=== PATIENT | female | born 1985 ===

== ENCOUNTER 2019-02-14 02:22 | Inpatient (IN) | payer MEDICAID ==
[2019-02-14] MEDS ORDERED: Terbutaline 1 MG/ML SDV SUBCUT ONE (03:06)
[2019-02-14] MEDS ORDERED: Sodium Chloride 0.9% 10 ML Syringe FLUSH PRN (03:07)
[2019-02-14] MEDS ORDERED: Sodium Chloride 0.9% 2.5 ML Syringe FLUSH PRN (03:07)
[2019-02-14] MEDS ORDERED: Sodium Chloride 0.9% 10 ML SDV IV PRN (03:07)
[2019-02-14] MEDS ORDERED: ceFAZolin 2 GM in Premix Bag 1 BAG IV ONE (03:07)
[2019-02-14] MEDS ORDERED: Citric Acid/Sodium Citrate Solution 30 ML Cup PO ONE (03:07)
[2019-02-14] MEDS ORDERED: Terbutaline 1 MG/ML SDV ONE (03:13)
[2019-02-14] MEDS ORDERED: Oxytocin/0.9 % Sodium Chloride 30 UNIT/500 ML BAG IV SCH (03:15)
[2019-02-14] MEDS: Lactated Ringers 1,000 ML IV SCH ×4 (03:21→13:45)
[2019-02-14] MEDS ORDERED: Morphine PF 10 MG/10 ML SDV ONE (03:32)
[2019-02-14] MEDS ORDERED: Oxytocin 10 Units/1 ML SDV ONE (03:36)
[2019-02-14] MEDS ORDERED: Ondansetron 4 MG/2 ML SDV ONE (03:37)
[2019-02-14] MEDS ORDERED: Phenylephrine/Normal Saline 100 MCG/ML 10 ML Syringe ONE (03:37)
[2019-02-14] MEDS ORDERED: Ketorolac 30 MG/ML SDV ONE (03:37)
--- NOTE | 2019-02-14 03:47 | PCM.PREANE ---
Preanesthetic Assessment - Anesthesia/Transfusion/Family Hx Anesthesia History: Prior Anesthesia Without Reaction Family History of Anesthesia Reaction: No - Physical Assessment NPO Status Date: 02/13/19 NPO Status Time: 11:00 Height: 1.73 m Weight: 100.244 kg ASA Class: 2E Mental Status: Alert & Oriented x3 Dentition: Reports: Normal Dentition ROM/Head Extension: Full - Lab Values: Laboratory Last Values WBC 14.14 K/uL (4.0-11.0) H 02/14/19 03:25 RBC 4.20 M/uL (4.30-5.90) L 02/14/19 03:25 Hgb 13.0 g/dL (12.0-16.0) 02/14/19 03:25 Hct 38.1 % (36.0-46.0) 02/14/19 03:25 MCV 90.7 fL (80.0-98.0) 02/14/19 03:25 MCH 31.0 pg (27.0-32.0) 02/14/19 03:25 MCHC 34.1 g/dL (31.0-37.0) 02/14/19 03:25 RDW Std Deviation 43.5 fl (28.0-62.0) 02/14/19 03:25 RDW Coeff of Elmer 13 % (11.0-15.0) 02/14/19 03:25 Plt Count 211 K/uL (150-400) 02/14/19 03:25 MPV 10.80 fL (7.40-12.00) 02/14/19 03:25 Nucleated RBC % 0.0 /100WBC 02/14/19 03:25 Nucleated RBCs # 0 K/uL 02/14/19 03:25 - Allergies Allergies/Adverse Reactions: Allergies Allergy/AdvReac Type Severity Reaction Status Date / Time acetaminophen Allergy lips swell Verified 02/09/19 12:50 [From Theraflu Sinus and Cold] diphenhydramine Allergy lips & Verified 02/09/19 12:50 [From Benadryl] throat swell pheniramine Allergy lips swell Verified 02/09/19 12:50 [From Theraflu Sinus and Cold] phenylephrine Allergy lips swell Verified 02/09/19 12:50 [From Theraflu Sinus and Cold] - Acknowledgements Anesthesia Type Planned: Spinal Pt an Appropriate Candidate for the Planned Anesthesia: Yes Alternatives and Risks of Anesthesia Discussed w Pt/Guardian: Yes Pt/Guardian Understands and Agrees with Anesthesia Plan: Yes PreAnesthesia Questionnaire - HOME MEDS Home Medications: Home Meds Iron 22 mg PO DAILY 02/09/19 [History] Lactobacillus Combination No.4 [Probiotic] 1 tab PO DAILY 02/09/19 [History] Pnv No.95/Ferrous Fum/Folic AC [ Vitamin Tablet] 1 tab PO DAILY [History] - CURRENT (IN HOUSE) MEDS Current Meds: Current Medications Oxytocin/Sodium Chloride (Oxytocin 30 Unit/500 Ml-Ns) 30 unit in 500 mls @ 250 mls/hr IV TITRATE DEREK Lactated Ringer's (Ringers, Lactated) 1,000 mls @ 500 mls/hr IV BOLUS DEREK Last Admin: 02/14/19 03:21 Dose: 999 mls/hr Sodium Chloride (Saline Flush) 10 ml FLUSH ASDIRECTED PRN PRN Reason: Keep Vein Open Sodium Chloride (Saline Flush) 2.5 ml FLUSH ASDIRECTED PRN PRN Reason: Keep Vein Open Sodium Chloride (Normal Saline) 10 ml IV ASDIRECTED PRN PRN Reason: IV Use Discontinued Medications Citric Acid/Sodium Citrate (Bicitra Solution) 30 ml PO ONETIME ONE Stop: 02/14/19 03:08 Cefazolin Sodium/Dextrose 2 gm (/ Premix) 50 mls @ 100 mls/hr IV ONETIME ONE Stop: 02/14/19 03:36 Ketorolac Tromethamine (Toradol) Confirm Administered Dose 30 mg .ROUTE .STK- MED ONE Stop: 02/14/19 03:38 Morphine Sulfate (Duramorph Pf) Confirm Administered Dose 10 mg .ROUTE .STK-MED ONE Stop: 02/14/19 03:33 Ondansetron HCl (Zofran) Confirm Administered Dose 4 mg .ROUTE .STK-MED ONE Stop: 02/14/19 03:38 Oxytocin (Pitocin) Confirm Administered Dose 10 unit .ROUTE .STK-MED ONE Stop: 02/14/19 03:37 Phenylephrine HCl (Phenylephrine In Ns 100 Mcg/Ml) Confirm Administered Dose 1 mg .ROUTE .STK-MED ONE Stop: 02/14/19 03:38 Terbutaline Sulfate (Brethine) 0.25 mg SUBCUT ONETIME ONE Stop: 02/14/19 03:07 Last Admin: 02/14/19 03:18 Dose: 0.25 mg Terbutaline Sulfate (Brethine) Confirm Administered Dose 1 mg .ROUTE .STK-MED ONE Stop: 02/14/19 03:14
[2019-02-14] MEDS ORDERED: ceFAZolin 1 GM Vial ONE (03:56)
[2019-02-14] MEDS ORDERED: Sodium Chloride 0.9% 20 ML ONE (03:56)
[2019-02-14] MEDS ORDERED: Ondansetron 4 MG/2 ML SDV IVPUSH PRN ×2 (05:25→06:47)
[2019-02-14] MEDS ORDERED: fentaNYL 100 MCG/2 ML SDV IVPUSH PRN (05:25)
[2019-02-14] MEDS ORDERED: Nalbuphine 10 MG/1 ML Vial IVPUSH PRN (05:25)
[2019-02-14] MEDS ORDERED: Acetaminophen/oxyCODONE 325-5 MG Tab PO PRN ×2 (05:25→06:47)
[2019-02-14] MEDS ORDERED: Naloxone 0.4 MG/ML Syringe IVPUSH PRN (05:25)
[2019-02-14] MEDS ORDERED: Bisacodyl 10 MG Supp RECTAL PRN (06:47)
[2019-02-14] MEDS ORDERED: Tranexamic Acid 1,000 MG in Sodium Chloride 0.9% 100 ML IV PRN (06:47)
[2019-02-14] MEDS ORDERED: Oxytocin 10 Units/1 ML SDV IM PRN (06:47)
[2019-02-14] MEDS ORDERED: Methylergonovine 0.2 MG/1 ML Amp IM PRN (06:47)
[2019-02-14] MEDS ORDERED: Misoprostol 200 MCG Tab RECTAL PRN (06:47)
[2019-02-14] MEDS ORDERED: Lanolin 100% Cream 7 GM Tube TOP PRN (06:47)
--- NOTE | 2019-02-14 06:52 | PCM.POSTAN ---
POST ANESTHESIA ASSESSMENT - MENTAL STATUS Mental Status: Alert - VITAL SIGNS Vital Signs: Last Vital Signs Temp 37.2 C 02/14/19 06:16 Pulse 95 02/14/19 06:47 Resp 18 02/14/19 06:47 BP 115/63 02/14/19 06:47 Pulse Ox 98 02/14/19 06:47 - RESPIRATORY Respiratory Status: Respiratory Rate WNL - CARDIOVASCULAR CV Status: Pulse Rate WNL - GASTROINTESTINAL GI Status: No Symptoms - POST OP HYDRATION Hydration Status: Adequate & Stable
--- NOTE | 2019-02-14 06:57 | PCM.OPNOTE ---
- General Post-Op/Procedure Note Date of Surgery/Procedure: 02/14/19 Operative Procedure(s): Tertiary Lower transverse Findings: Live female delivered at 515am , 8/9 weight 3890g Pre Op Diagnosis: 33yo @ 39w3d in early labor Post-Op Diagnosis: same Anesthesia Technique: Spinal Primary Surgeon: Mireya Humphrey Anesthesia Provider: Manpreet Read Pathology: Placenta Fluid Replacement, Intraop: 1,800 Output, Urine Amount: 75 EBL in mLs: 600 Complications: None Condition: Good Free Text/Narrative:: Intake & Output 02/13/19 02/13/19 02/14/19 14:59 22:59 06:59 Intake Total 2100 Output Total 75 Balance 2024
[2019-02-14] MEDS ORDERED: Oxytocin/Lactated Ringers 30 UNIT/500 ML BAG IV SCH (07:00)
[2019-02-14] MEDS: Ketorolac 30 MG/ML SDV IVPUSH SCH ×3 (08:04→18:26)
[2019-02-14] MEDS: Docusate Sodium 100 MG Cap PO SCH ×2 (10:25→21:02)
[2019-02-15] MEDS: Ketorolac 30 MG/ML SDV IVPUSH SCH ×2 (00:10→06:34)
--- NOTE | 2019-02-15 01:50 | OR ---
SURGEON: ALEX JOHNSON DATE OF PROCEDURE:02/14/2019 PREOPERATIVE DIAGNOSIS: A 33-year-old G3, P2-0-0-2, at 39 weeks 3 days, previous section in early labor. POSTOPERATIVE DIAGNOSES: A 33-year-old G3, P2-0-0-2, at 39 weeks 3 days, previous section in early labor. PROCEDURE: Tertiary lower transverse segment section. ESTIMATED BLOOD LOSS: 750. IV FLUIDS: 1800. URINE OUTPUT: 75. COMPLICATIONS: None NOTES AND FINDINGS: A live female delivered at 5:15 a.m. scores are 8 and 9. Weight is 3890 g. BRIEF HISTORY ABOUT THE PATIENT: A 33-year-old G3, P2-0-0-2, at 39 weeks 3 days, who came in complaining of contractions. She had previous history of and she declined TOLAC. She was explained the risks, benefits, alternatives of delivery, which she accepted. All questions were answered. DESCRIPTION OF PROCEDURE: The patient was taken to the operating room, where she was placed in the dorsal supine position with a leftward tilt. A Pfannenstiel skin incision was made on the scar of the previous incision and carried down to the fascia with the Bovie. The fascia was incised and extended upwards and laterally. The fascia was from the rectus muscles superiorly and inferiorly. Rectus muscle was in the midline. The peritoneum was grasped with the hemostat and entered in. The incision was then extended manually. The lower uterine segment was noted. The Shashank retractor was placed in the abdomen to expose the lower uterine segment. The bladder flap was created. A lower uterine incision was made. Fetus was in cephalic position. She was brought to the level of the incision. With fundal pressure, the fetus was delivered without difficulty. The cord was clamped and cut. The infant was handed over to the awaiting director consumer. Placenta was delivered by manual massage of the uterine fundus. The uterus was cleaned with laparotomy sponges. The hysterotomy incision was closed in 2 layers. First layer was closed with 0 Vicryl interlocking. Second layer was closed with 0 Monocryl. The Shashank retractor was removed. The adnexa were inspected and noted to be normal. The gutters were cleaned with laparotomy sponges. The peritoneum was then approximated with 2.0 vicryl . The fascia was closed with 0 Vicryl. The subcutaneous fat was also closed with 2.0 vicryl and the skin was closed with 3-0 Monocryl on a Jona needle. All instrument and pad counts were correct x2. The patient tolerated the procedure well and was taken to the recovery room. CHRISTI SEGAL /[id number] ANANDA
--- NOTE | 2019-02-15 07:15 | PCM48HPAN ---
Post Anesthesia Note - EVALUATION WITHIN 48HRS OF ANESTHETIC Vital Signs in Normal Range: Yes Patient Participated in Evaluation: Yes Respiratory Function Stable: Yes Airway Patent: Yes Cardiovascular Function Stable: Yes Hydration Status Stable: Yes Pain Control Satisfactory: Yes Nausea and Vomiting Control Satisfactory: Yes Mental Status Recovered: Yes Vital Signs: Last Vital Signs Temp 37.0 C 02/15/19 04:20 Pulse 98 02/15/19 05:00 Resp 17 02/15/19 05:00 BP 104/56 L 02/15/19 04:20 Pulse Ox 97 02/15/19 05:00
[2019-02-15] MEDS: Docusate Sodium 100 MG Cap PO SCH ×2 (08:21→20:17)
--- NOTE | 2019-02-15 08:55 | PCM.PNPP ---
- General Info Date of Service: 02/15/19 Functional Status: Reports: Pain Controlled, Tolerating Diet, Ambulating, Urinating - Review of Systems General: Reports: No Symptoms HEENT: Reports: No Symptoms Pulmonary: Reports: No Symptoms Cardiovascular: Reports: No Symptoms Gastrointestinal: Reports: No Symptoms Genitourinary: Reports: No Symptoms Musculoskeletal: Reports: No Symptoms Skin: Reports: No Symptoms Neurological: Reports: No Symptoms Psychiatric: Reports: No Symptoms - General Info Date of Service: 02/15/19 - Patient Data Vital Signs - Most Recent: Last Vital Signs Temp 37.0 C 02/15/19 04:20 Pulse 98 02/15/19 05:00 Resp 17 02/15/19 05:00 BP 104/56 L 02/15/19 04:20 Pulse Ox 97 02/15/19 05:00 Weight - Most Recent: 100.244 kg I&O - Last 24 Hours: Intake & Output 02/14/19 02/15/19 02/15/19 22:59 06:59 14:59 Intake Total 1679 Output Total 700 1800 Balance 979 -1800 Lab Results - Last 24 Hours: Laboratory Results - last 24 hr 02/15/19 Range/Units 05:45 Hgb 11.3 L (12.0-16.0) g/dL Hct 33.5 L (36.0-46.0) % Med Orders - Current: Current Medications Bisacodyl (Dulcolax) 10 mg RECTAL ONETIME PRN PRN Reason: Constipation Docusate Sodium (Colace) 100 mg PO BID [facility] Last Admin: 02/15/19 08:21 Dose: 100 mg Emollient Ointment (Lansinoh Hpa) 0 gm TOP ASDIRECTED PRN PRN Reason: Sore Nipples Fentanyl (Sublimaze) 50 mcg IVPUSH Q1H PRN PRN Reason: Pain (severe 7-10) Oxytocin/Sodium Chloride (Oxytocin 30 Unit/500 Ml-Ns) 30 unit in 500 mls @ 250 mls/hr IV TITRATE DEREK Lactated Ringer's (Ringers, Lactated) 1,000 mls @ 500 mls/hr IV BOLUS [facility] Last Admin: 02/14/19 04:26 Dose: 999 mls/hr Lactated Ringer's (Ringers, Lactated) 1,000 mls @ 125 mls/hr IV ASDIRECTED [facility] Last Admin: 02/14/19 13:45 Dose: 125 mls/hr Oxytocin/Lactated Ringer's (Pitocin In Lr 30 Units/500 Ml) 30 unit in 500 mls @ 125 mls/hr IV TITRATE DEREK; Protocol Tranexamic Acid 1,000 mg/ (Sodium Chloride) 110 mls @ 660 mls/hr IV ONETIME PRN PRN Reason: Bleeding Ibuprofen (Motrin) 800 mg PO Q8H PRN PRN Reason: mild pain or fever Methylergonovine Maleate (Methergine) 0.2 mg IM ONETIME PRN PRN Reason: Excessive Vaginal Bleeding Misoprostol (Cytotec) 1,000 mcg RECTAL ONETIME PRN PRN Reason: excessive bleeding Nalbuphine HCl (Nubain) 5 mg IVPUSH ASDIRECTED PRN PRN Reason: Itching Ondansetron HCl (Zofran) 4 mg IVPUSH Q6H PRN PRN Reason: Nausea Ondansetron HCl (Zofran) 4 mg IVPUSH Q4H PRN PRN Reason: Nausea/Vomiting Oxycodone/Acetaminophen (Percocet 325-5 Mg) 2 tab PO Q6H PRN PRN Reason: Pain (moderate 4-6) Oxycodone/Acetaminophen (Percocet 325-5 Mg) 1 tab PO Q4H PRN PRN Reason: Pain (moderate 4-6) Oxycodone/Acetaminophen (Percocet 325-5 Mg) 2 tab PO Q4H PRN PRN Reason: Pain (moderate 4-6) Oxytocin (Pitocin) 10 unit IM ASDIRECTED PRN PRN Reason: Excessive Vaginal Bleeding Sodium Chloride (Saline Flush) 10 ml FLUSH ASDIRECTED PRN PRN Reason: Keep Vein Open Sodium Chloride (Saline Flush) 2.5 ml FLUSH ASDIRECTED PRN PRN Reason: Keep Vein Open Sodium Chloride (Normal Saline) 10 ml IV ASDIRECTED PRN PRN Reason: IV Use Discontinued Medications Cefazolin Sodium (Ancef) Confirm Administered Dose 2 gm .ROUTE .STK-MED ONE Stop: 02/14/19 03:57 Citric Acid/Sodium Citrate (Bicitra Solution) 30 ml PO ONETIME ONE Stop: 02/14/19 03:08 Last Admin: 02/14/19 04:25 Dose: 30 ml Cefazolin Sodium/Dextrose 2 gm (/ Premix) 50 mls @ 100 mls/hr IV ONETIME ONE Stop: 02/14/19 03:36 Last Admin: 02/14/19 20:23 Dose: Not Given Sodium Chloride (Normal Saline) Confirm Administered Dose 20 mls @ as directed .ROUTE .STK-MED ONE Stop: 02/14/19 03:57 Ketorolac Tromethamine (Toradol) Confirm Administered Dose 30 mg .ROUTE .STK- MED ONE Stop: 02/14/19 03:38 Ketorolac Tromethamine (Toradol) 30 mg IVPUSH Q6H DEREK Stop: 02/15/19 07:01 Last Admin: 02/15/19 06:34 Dose: Not Given Morphine Sulfate (Duramorph Pf) Confirm Administered Dose 10 mg .ROUTE .STK-MED ONE Stop: 02/14/19 03:33 Naloxone HCl (Narcan) 0.1 mg IVPUSH ONETIME PRN PRN Reason: Respiratory Depression Stop: 02/15/19 05:26 Ondansetron HCl (Zofran) Confirm Administered Dose 4 mg .ROUTE .STK-MED ONE Stop: 02/14/19 03:38 Oxytocin (Pitocin) Confirm Administered Dose 10 unit .ROUTE .STK-MED ONE Stop: 02/14/19 03:37 Phenylephrine HCl (Phenylephrine In Ns 100 Mcg/Ml) Confirm Administered Dose 1 mg .ROUTE .STK-MED ONE Stop: 02/14/19 03:38 Terbutaline Sulfate (Brethine) 0.25 mg SUBCUT ONETIME ONE Stop: 02/14/19 03:07 Last Admin: 02/14/19 03:18 Dose: 0.25 mg Terbutaline Sulfate (Brethine) Confirm Administered Dose 1 mg .ROUTE .STK-MED ONE Stop: 02/14/19 03:14 Last Admin: 02/14/19 03:18 Dose: Not Given - Interaction Support Person: Friend - Recovery Exam Fundal Tone: Firm Fundal Level: 1 Fingerbreadths Below Umbilicus Fundal Placement: Midline Lochia Amount: Scant Lochia Color: Rubra/Red Perineum Description: Intact, Minimal Bruising/Swelling Episiotomy/Laceration: None Bladder Status: Indwelling Catheter in Place Urinary Elimination: Indwelling Catheter - Exam General: Alert, Oriented HEENT: Pupils Equal Neck: Supple Lungs: Clear to Auscultation Cardiovascular: Regular Rate, Regular Rhythm GI/Abdominal Exam: Normal Bowel Sounds Extremities: Normal Inspection Wound/Incisions: Dressing Dry and Intact (PFannestiel skin incision c/d/i ) Neurological: No New Focal Deficit Psy/Mental Status: Alert - Problem List & Annotations (1) delivery delivered SNOMED Code(s): 077752704 Code(s): O82 - ENCOUNTER FOR DELIVERY WITHOUT INDICATION Status: Acute Current Visit: Yes - Problem List Review Problem List Initiated/Reviewed/Updated: Yes - My Orders Last 24 Hours: My Active Orders 02/14/19 09:00 Docusate Sodium [Colace] 100 mg PO BID 02/14/19 Lunch Regular Diet [DIET] 02/15/19 13:00 Ibuprofen [Motrin] 800 mg PO Q8H PRN - Assessment Assessment:: 33 yo P3 s/p Tertiary , POD 1 Ambulating , voiding and tolerating regular diet Normal lochia - Plan Plan:: Routine Incentive spirometry Pain control as needed Discharge home tomorrow
[2019-02-15] MEDS: Ibuprofen 800 MG Tab PO PRN ×2 (11:34→19:21)
[2019-02-16] MEDS: Acetaminophen/oxyCODONE 325-5 MG Tab PO PRN ×3 (01:14→12:00)
[2019-02-16] MEDS: Ibuprofen 800 MG Tab PO PRN (05:16)
[2019-02-16] MEDS: Docusate Sodium 100 MG Cap PO SCH (08:12)
--- NOTE | 2019-02-16 09:04 | PCM.PNPP ---
- General Info Date of Service: 02/16/19 Functional Status: Reports: Pain Controlled, Tolerating Diet, Ambulating, Urinating, Incentive Spirometry - Review of Systems General: Reports: No Symptoms HEENT: Reports: No Symptoms Pulmonary: Reports: No Symptoms Cardiovascular: Reports: No Symptoms Gastrointestinal: Reports: Other (Incisonal pain, cramping) Genitourinary: Reports: No Symptoms Musculoskeletal: Reports: No Symptoms Skin: Reports: No Symptoms Neurological: Reports: No Symptoms Psychiatric: Reports: No Symptoms - Patient Data Vital Signs - Most Recent: Last Vital Signs Temp 36.6 C 02/16/19 03:00 Pulse 75 02/16/19 03:00 Resp 17 02/16/19 03:00 BP 115/68 02/16/19 03:00 Pulse Ox 96 02/16/19 03:00 Weight - Most Recent: 221 lb Med Orders - Current: Current Medications Bisacodyl (Dulcolax) 10 mg RECTAL ONETIME PRN PRN Reason: Constipation Docusate Sodium (Colace) 100 mg PO BID [facility] Last Admin: 02/16/19 08:12 Dose: 100 mg Emollient Ointment (Lansinoh Hpa) 0 gm TOP ASDIRECTED PRN PRN Reason: Sore Nipples Fentanyl (Sublimaze) 50 mcg IVPUSH Q1H PRN PRN Reason: Pain (severe 7-10) Oxytocin/Sodium Chloride (Oxytocin 30 Unit/500 Ml-Ns) 30 unit in 500 mls @ 250 mls/hr IV TITRATE DEREK Lactated Ringer's (Ringers, Lactated) 1,000 mls @ 500 mls/hr IV BOLUS [facility] Last Admin: 02/14/19 04:26 Dose: 999 mls/hr Lactated Ringer's (Ringers, Lactated) 1,000 mls @ 125 mls/hr IV ASDIRECTED [facility] Last Admin: 02/14/19 13:45 Dose: 125 mls/hr Oxytocin/Lactated Ringer's (Pitocin In Lr 30 Units/500 Ml) 30 unit in 500 mls @ 125 mls/hr IV TITRATE [facility]; Protocol Tranexamic Acid 1,000 mg/ (Sodium Chloride) 110 mls @ 660 mls/hr IV ONETIME PRN PRN Reason: Bleeding Ibuprofen (Motrin) 800 mg PO Q8H PRN PRN Reason: mild pain or fever Last Admin: 02/16/19 05:16 Dose: 800 mg Methylergonovine Maleate (Methergine) 0.2 mg IM ONETIME PRN PRN Reason: Excessive Vaginal Bleeding Misoprostol (Cytotec) 1,000 mcg RECTAL ONETIME PRN PRN Reason: excessive bleeding Nalbuphine HCl (Nubain) 5 mg IVPUSH ASDIRECTED PRN PRN Reason: Itching Ondansetron HCl (Zofran) 4 mg IVPUSH Q6H PRN PRN Reason: Nausea Ondansetron HCl (Zofran) 4 mg IVPUSH Q4H PRN PRN Reason: Nausea/Vomiting Oxycodone/Acetaminophen (Percocet 325-5 Mg) 2 tab PO Q6H PRN PRN Reason: Pain (moderate 4-6) Oxycodone/Acetaminophen (Percocet 325-5 Mg) 1 tab PO Q4H PRN PRN Reason: Pain (moderate 4-6) Last Admin: 02/16/19 08:12 Dose: 1 tab Oxycodone/Acetaminophen (Percocet 325-5 Mg) 2 tab PO Q4H PRN PRN Reason: Pain (moderate 4-6) Oxytocin (Pitocin) 10 unit IM ASDIRECTED PRN PRN Reason: Excessive Vaginal Bleeding Sodium Chloride (Saline Flush) 10 ml FLUSH ASDIRECTED PRN PRN Reason: Keep Vein Open Sodium Chloride (Saline Flush) 2.5 ml FLUSH ASDIRECTED PRN PRN Reason: Keep Vein Open Sodium Chloride (Normal Saline) 10 ml IV ASDIRECTED PRN PRN Reason: IV Use Discontinued Medications Cefazolin Sodium (Ancef) Confirm Administered Dose 2 gm .ROUTE .STK-MED ONE Stop: 02/14/19 03:57 Citric Acid/Sodium Citrate (Bicitra Solution) 30 ml PO ONETIME ONE Stop: 02/14/19 03:08 Last Admin: 02/14/19 04:25 Dose: 30 ml Cefazolin Sodium/Dextrose 2 gm (/ Premix) 50 mls @ 100 mls/hr IV ONETIME ONE Stop: 02/14/19 03:36 Last Admin: 02/14/19 20:23 Dose: Not Given Sodium Chloride (Normal Saline) Confirm Administered Dose 20 mls @ as directed .ROUTE .STK-MED ONE Stop: 02/14/19 03:57 Ketorolac Tromethamine (Toradol) Confirm Administered Dose 30 mg .ROUTE .STK- MED ONE Stop: 02/14/19 03:38 Ketorolac Tromethamine (Toradol) 30 mg IVPUSH Q6H DEREK Stop: 02/15/19 07:01 Last Admin: 02/15/19 06:34 Dose: Not Given Morphine Sulfate (Duramorph Pf) Confirm Administered Dose 10 mg .ROUTE .STK-MED ONE Stop: 02/14/19 03:33 Naloxone HCl (Narcan) 0.1 mg IVPUSH ONETIME PRN PRN Reason: Respiratory Depression Stop: 02/15/19 05:26 Ondansetron HCl (Zofran) Confirm Administered Dose 4 mg .ROUTE .STK-MED ONE Stop: 02/14/19 03:38 Oxytocin (Pitocin) Confirm Administered Dose 10 unit .ROUTE .STK-MED ONE Stop: 02/14/19 03:37 Phenylephrine HCl (Phenylephrine In Ns 100 Mcg/Ml) Confirm Administered Dose 1 mg .ROUTE .STK-MED ONE Stop: 02/14/19 03:38 Terbutaline Sulfate (Brethine) 0.25 mg SUBCUT ONETIME ONE Stop: 02/14/19 03:07 Last Admin: 02/14/19 03:18 Dose: 0.25 mg Terbutaline Sulfate (Brethine) Confirm Administered Dose 1 mg .ROUTE .STK-MED ONE Stop: 02/14/19 03:14 Last Admin: 02/14/19 03:18 Dose: Not Given - Interaction Infant Disposition, : [place] at Bedside Interaction: Holding Feeding: Breastfed Infant; Nursed Well Support Person: Friend - Recovery Exam Fundal Tone: Firm Fundal Level: 1 Fingerbreadths Below Umbilicus Fundal Placement: Midline Lochia Amount: Scant Lochia Color: Rubra/Red Episiotomy/Laceration: None Bladder Status: Voiding Urinary Elimination: Indwelling Catheter - Exam General: Alert, Oriented, Cooperative, No Acute Distress HEENT: Pupils Equal, Pupils Reactive, EOMI Neck: Supple, Trachea Midline, No JVD Lungs: Normal Respiratory Effort GI/Abdominal Exam: Normal Bowel Sounds, Soft, Non-Tender, No Distention Extremities: Normal Inspection, Normal Range of Motion, Non-Tender, No Pedal Edema Skin: Warm, Dry, Intact Wound/Incisions: Healing Well, No Drainage Neurological: No New Focal Deficit Psy/Mental Status: Alert, Normal Affect, Normal Mood - Problem List Review Problem List Initiated/Reviewed/Updated: Yes - My Orders Last 24 Hours: My Active Orders 02/16/19 08:53 Ready for Discharge [RC] PER UNIT ROUTINE - Assessment Assessment:: 33 yo P3 s/p repeat , POD 2 - Plan Plan:: VSS Incision healing well, pain controlled Ambulating , voiding and tolerating regular diet hgb 11.3, no s/s of anemia + flatus Stable for discharge home today. Follow up in 2wks and 6wks
== END 2019-02-16 12:00 | disposition home or self-care (01) | DRG 788 ==
LOC: MW.OBCHECK 02:22 → MW.OB 02:24 → MW.OBCHECK 03:07 → MW.OB 08:33
PROVIDERS: ADMIT Obstetrics & Gynecology; ATTEND Obstetrics & Gynecology
PROC: 10D00Z1 Extraction of Products of Conception, Low, Open Approach (ICD-10-PCS; principal; 2019-02-14)
DX: O34.211 Maternal care for low transverse scar from previous cesarean delivery (principal); Z37.0 Single live birth; Z3A.39 39 weeks gestation of pregnancy; Z79.899 Other long term (current) drug therapy; Z88.8 Allergy status to other drugs, medicaments and biological substances
CPT/HCPCS: 01961; 36415; 59025; 85014; 85018; 85027; 86593; 86850; 86900; 86901; A9270-GY; J0690; J1885; J2270; J2370; J2405; J2590; J3105; J7120